=== PATIENT | female | born 1980 | race Hispanic/Latino ===

== ENCOUNTER → 2019-02-08 | Outpatient (CLI) | payer OTHER ==
--- NOTE | 2019-02-08 10:02 | Diagnostic Imaging Report ---
Exam: Lumbar spine complete History: Low back pain Comparison: None. Findings: There are 5 nonrib-bearing lumbar-type vertebral bodies. No acute, displaced fracture or subluxation. No pars interarticularis defects are appreciated on the oblique radiographs. Mild degenerative disc changes manifest by disc space narrowing and marginal osteophytosis at L3-4 and L4-L5. Mild bilateral facet arthropathy at L5-S1. Sacroiliac joints are intact. Sacral foramina are unremarkable superiorly. Impression: Mild degenerative disc changes and facet arthropathy of the lower lumbar spine. Signed by: Dr. Arash Hebert M.D. on 02/08/2019 9:58 AM
--- NOTE | 2019-02-08 10:30 | Diagnostic Imaging Report ---
Thoracic Spine - 3 view(s) HISTORY: Back pain COMPARISON: Lumbar spine radiographs from the same date. FINDINGS: Superimposed structures and attenuation partially limit bone detail. The alignment is normal. No displaced fracture or compression deformity is identified. Minimal multilevel degenerative disc changes, most notably of the mid to lower thoracic spine. IMPRESSION: 1. No acute radiographic abnormality. 2. Minimal degenerative disc changes. Signed by: Dr. Rajeev Rojas D.O., M.M.M. on 02/08/2019 10:27 AM
== END ==
LOC: MAMMO 08:41
PROVIDERS: ATTEND Internal Medicine
DX: Z12.31 Encounter for screening mammogram for malignant neoplasm of breast (principal); M54.6 Pain in thoracic spine; M54.5 Low back pain
CPT/HCPCS: 72070; 72110; 77067

== ENCOUNTER → 2020-11-06 | Outpatient (CLI) | payer BC | LOC: MAMMO 14:08 | PROVIDERS: ATTEND Internal Medicine | DX: Z12.31 Encounter for screening mammogram for malignant neoplasm of breast (principal) | CPT/HCPCS: 77067 ==